=== PATIENT | male | born 1960 | race Caucasian/White ===

== ENCOUNTER 2021-11-29 14:15 | Emergency (ER) | payer BC, OTHER ==
[2021-11-29 14:37] VITALS: BP 115/82; PULSE 74; TEMP 98.6; BMI 50.1
[2021-11-29 16:41] LABS: BASO % 0.9 % (0-2.0); EOS % 1.5 % (0-4.5); HEMATOCRIT 38.8 % (35.4-49); HEMOGLOBIN 12.8 GM/dL (11.7-16.9); LYMPH % 27.1 % (8-40); MCH 27.7 pg (25.7-33.7); MEAN CELL VOLUME 83.9 fl (80-96); MEAN PLT VOLUME 8.8 fl (7.5-11.1); MONO % 8.6 % (3.8-10.2); NEUT % 61.9 % (42.8-82.8); PLATELET COUNT 200 10^3/uL (134-434); RBC 4.63 M/mm3 (4.00-5.60); RDW 14.5 % (11.9-15.9); WHITE BLOOD COUNT 7.5 K/mm3 (4.0-10.0)
[2021-11-29 17:08] LABS: CALCIUM 8.7 mg/dL (8.5-10.1)
[2021-11-29 17:09] LABS: ALBUMIN 3.2 g/dl (3.4-5.0); BLOOD UREA NITROGEN 15.9 mg/dL (7-18); MAGNESIUM 2.1 mg/dL (1.8-2.4)
[2021-11-29 17:12] LABS: CREATININE 0.8 mg/dL (0.55-1.3)
[2021-11-29 17:14] LABS: BILIRUBIN,TOTAL 0.6 mg/dL (0.2-1); TOT PROT 6.7 g/dl (6.4-8.2)
[2021-11-29 17:43] LABS: N-TERMINAL BNP 42.6 pg/ml (5-125)
== END 2021-11-29 19:37 | disposition left against medical advice (07) ==
LOC: JER 14:15
DX: R10.9 Unspecified abdominal pain (principal)
CPT/HCPCS: 36415; 80053; 83735; 83880; 84484; 85025; 93005; 93010; 99284-25